=== PATIENT | female | born 1985 | race Caucasian/White ===

== ENCOUNTER 2018-08-18 22:53 | Emergency (ER) | payer OTHER ==
[~2018-08-18] VITALS: Ht 160 cm; Wt 60.0 kg
[2018-08-18 22:56] VITALS: Ht 160 cm; Wt 60.0 kg
[2018-08-19] MEDS ORDERED: HYDROCODONE/APAP (5/325) TAB PO ONE (02:00)
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
[2018-08-19] MEDS ORDERED: IBUP-1542 PO (02:52)
[2018-08-19 03:28] VITALS: BP 99/64; PULSE 62; RESP 19
== END 2018-08-19 03:30 | disposition home or self-care (01) ==
LOC: FTE 22:53
DX: S16.1XXA Strain of muscle, fascia and tendon at neck level, initial encounter (principal); S39.92XA Unspecified injury of lower back, initial encounter; V49.59XA Passenger injured in collision with other motor vehicles in traffic accident, initial encounter
CPT/HCPCS: 72040; 72100; 81025; Z7502; Z7610